=== PATIENT | female | born 1995 | race American Indian/Alaskan Native ===

== ENCOUNTER 2017-03-12 11:33 | Emergency (ER) | payer MEDICAID ==
[2017-03-12 11:33] VITALS: BMI 24.7
[2017-03-12 11:42] VITALS: BP 123/75; PULSE 95; RESP 20; TEMP 97.8; O2SAT 97
--- NOTE | 2017-03-12 12:36 | C.PDOC ---
History Of Present Illness 21 year old patient presents to the ED complaining of itching and swelling from eyebrows. Patient states she went to a new place to get her eyebrows waxed 3 days ago. There was mild itching at the time then swelling started yesterday. Patient denies shortness of breath or difficulty swallowing. Patient is 7 months . Time Seen by Provider: 03/12/17 12:12 Chief Complaint (Nursing): Allergic Reaction History Per: Patient History/Exam Limitations: no limitations Onset/Duration Of Symptoms: Days (3) Current Symptoms Are (Timing): Still Present Context: Other Possible Cause: Other (facial wax) Associated Symptoms: Swelling, Itching Home/EMS Treatment: None Severity: Mild Pain Scale Rating Of: 0 Recent travel outside of the [place]: No Past Medical History Reviewed: Historical Data, Nursing Documentation, Vital Signs Vital Signs: Last Vital Signs Temp 97.8 F 03/12/17 11:39 Pulse 95 H 03/12/17 11:39 Resp 20 03/12/17 11:39 BP 123/75 03/12/17 11:39 Pulse Ox 97 03/12/17 13:51 Family History: States: Unknown Family Hx - Social History Hx Alcohol Use: No Hx Substance Use: No - Immunization History Hx Tetanus Toxoid Vaccination: No Hx Influenza Vaccination: Yes Hx Pneumococcal Vaccination: No Review Of Systems Except As Marked, All Systems Reviewed And Found Negative. ENT: Negative for: Throat Swelling Respiratory: Negative for: Shortness of Breath Skin: Positive for: Other (swelling and itchiness to both eyebrows) Physical Exam - Physical Exam Appears: Non-toxic, No Acute Distress Skin: Warm, Dry, Other (mild swelling to right upper lid; swelling to bilateral eyebrows with erythema) Head: Atraumatic, Normacephalic Eye(s): bilateral: Normal Inspection, PERRL, EOMI Ear(s): Bilateral: Normal Nose: Normal Oral Mucosa: Moist Throat: Normal, No Erythema, No Exudate Neck: Normal ROM, Supple Chest: Symmetrical Cardiovascular: Rhythm Regular Respiratory: Normal Breath Sounds, No Accessory Muscle Use, No Rales, No Rhonchi , No Wheezing, Other (speaking in complete sentences) Gastrointestinal/Abdominal: Other (gravid) Back: Normal Inspection Extremity: Normal ROM Neurological/Psych: Oriented x3, Normal Speech, Normal Cognition Gait: Steady ED Course And Treatment O2 Sat by Pulse Oximetry: 97 (RA) Pulse Ox Interpretation: Normal Progress Note: atient was advised to avoid potential allergens, and to follow up with physician in 1-2 days. Return if symptoms worsen. Pt was seen and evaluated by Dr Snow, agreed upon plan and treatment. Disposition - Disposition Disposition: HOME/ ROUTINE Disposition Time: 12:35 Condition: STABLE Additional Instructions: Apply cold compresses. 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 - Scribe Statement The provider has reviewed the documentation as recorded by the Scribe Yuni Guillory All medical record entries made by the Scribe were at my direction and personally dictated by me. I have reviewed the chart and agree that the record accurately reflects my personal performance of the history, physical exam, medical decision making, and the department course for this patient. I have also personally directed, reviewed, and agree with the discharge instructions and disposition.
== END 2017-03-12 12:45 | disposition home or self-care (01) ==
LOC: C.ER 11:33
DX: L25.9 Unspecified contact dermatitis, unspecified cause (principal)

== ENCOUNTER 2017-09-29 14:30 | Emergency (ER) | payer SELFPAY ==
[2017-09-29 14:30] VITALS: BMI 24.7
[2017-09-29 15:00] VITALS: BP 141/87; PULSE 72; RESP 16; TEMP 97.8; O2SAT 96
--- NOTE | 2017-09-29 15:31 | C.PDOC ---
History Of Present Illness 22 year old female presents to the ED for evaluation of prolonged menstrual bleeding which has been ongoing for around 2 weeks. Patient states she was advised by her PROFESSOR OF MARKETING to start taking control pills on the first day of her menstrual period. Patient notes she took the pill as prescribed and her bleeding has continued since its onset. Patient also reports nausea, poor appetite, and states the bleeding is mild and similar to what she normally experiences during her period. Patient has been using a few pads/day. She denies fever, chills, lightheadedness, dizziness, vomiting and abdominal pain at this time. Time Seen by Provider: 09/29/17 14:54 Chief Complaint (Nursing): Female Genitourinary History Per: Patient History/Exam Limitations: no limitations Onset/Duration Of Symptoms: Persistent (2 weeks ) Current Symptoms Are (Timing): Still Present Quality Of Discomfort: denies: "Pain" Associated Symptoms: Nausea. denies: Fever, Chills, Vomiting Additional History Per: Patient Abnormal Vaginal Bleeding: Yes Past Medical History Reviewed: Historical Data, Nursing Documentation, Vital Signs Vital Signs: Last Vital Signs Temp 97.8 F 09/29/17 14:46 Pulse 72 09/29/17 14:46 Resp 16 09/29/17 14:46 BP 141/87 09/29/17 14:46 Pulse Ox 96 09/29/17 21:32 - Medical History PMH: No Chronic Diseases Denies: Chronic Kidney Disease Surgical History: No Surg Hx Family History: States: Unknown Family Hx - Social History Hx Alcohol Use: Yes Hx Substance Use: No - Immunization History Hx Tetanus Toxoid Vaccination: No Hx Influenza Vaccination: No Hx Pneumococcal Vaccination: No Review Of Systems Constitutional: Negative for: Fever, Chills Gastrointestinal: Positive for: Nausea. Negative for: Vomiting, Abdominal Pain Genitourinary: Positive for: Vaginal Bleeding Neurological: Negative for: Dizziness, Other (lightheadedness ) Physical Exam - Physical Exam Appears: Non-toxic, No Acute Distress Skin: Normal Color, Warm, Dry Eye(s): bilateral: Normal Inspection Oral Mucosa: Moist Neck: Supple Chest: Symmetrical, No Deformity, No Tenderness Cardiovascular: Rhythm Regular, No Murmur Respiratory: Normal Breath Sounds, No Accessory Muscle Use Gastrointestinal/Abdominal: Soft, No Tenderness, No Guarding, No Rebound Extremity: Normal ROM, Capillary Refill (less than 2 seconds ) Neurological/Psych: Oriented x3, Normal Speech, Normal Cognition Gait: Steady ED Course And Treatment O2 Sat by Pulse Oximetry: 96 (on RA) Pulse Ox Interpretation: Normal Progress Note: POC urine test ordered and results are negative. Zofran PO administered. On reassessment, patient is resting comfortably, showing no signs of distress and reports an improvement in her symptoms. Patient is advised to follow up with her PROFESSOR OF MARKETING within 1-2 days for further evaluation and/or return to the ED if symptoms worsen. Disposition - Disposition Disposition: HOME/ ROUTINE Disposition Time: 15:22 Condition: STABLE Additional Instructions: Follow up with PMD and OBGYN within 1-2 days. Return to ED if feel worse. Prescriptions: Ondansetron ODT [Zofran ODT] 4 mg PO .Q4-6H PRN #20 odt PRN Reason: Nausea/Vomiting Instructions: Dysfunctional Uterine Bleeding (ED), Control Pills (ED) Forms: [employer] ([place]zeri) - Clinical Impression Clinical Impression: Vaginal bleeding - PA / HOCKEY SCOUT / Resident Statement MD/DO has reviewed & agrees with the documentation as recorded. - Scribe Statement The provider has reviewed the documentation as recorded by the Scribe (Freda Guillory) All medical record entries made by the Scribe were at my direction and personally dictated by me. I have reviewed the chart and agree that the record accurately reflects my personal performance of the history, physical exam, medical decision making, and the department course for this patient. I have also personally directed, reviewed, and agree with the discharge instructions and disposition.
== END 2017-09-29 15:50 | disposition home or self-care (01) ==
LOC: C.ER 14:30
DX: N93.9 Abnormal uterine and vaginal bleeding, unspecified (principal)